=== PATIENT | male | born 1985 | race Caucasian/White ===

== ENCOUNTER 2019-02-25 00:07 | Emergency (ER) | payer SELFPAY ==
[~2019-02-25] VITALS: Ht 188 cm; Wt 127.0 kg
--- NOTE | 2019-02-25 00:07 | NUR ---
MICK DAWKINS. TAKEN TO BED 1
--- NOTE | 2019-02-25 00:07 | NUR ---
33/M BIB BLS, C/O 09/09 BL GROIN AND BLE PAIN, X2 DAYS; EXACERBATED BY WALKING "ALL DAY." BYSTANDER CALLED 911, PT IS HOMELESS, WAS FOUND IN THE STREETS IN [place]. SEVERE GROIN RASH WITH SURROUNDING REDNESS NOTED ON BL GROIN, PT DESCRIBED FROM GROIN CHAFFING. AOX4, GCS 15, AMBULATORY, RR EVEN AND UNLABORED. HX HTN, BIPOLAR, SCHIZOPHRENIA, RX NONCOMPLIANT
[2019-02-25 00:15] VITALS: BP 136/75
[2019-02-25] MEDS ORDERED: BACITRACIN OINT 500 UNITS/GM PKT TP ONE (01:10)
--- NOTE | 2019-02-25 01:22 | NUR ---
PT LEGS COVERED WITH BACITRACIN AND WRAPPED WITH ROLLER GAUZE. +CSM
--- NOTE | 2019-02-25 01:23 | NUR ---
PT IS HOMELESS, PT STATED THAT HE WILL GO BACK TO THE STREETS. PT PROVIDED WITH HOMELESS RESOURCE PACKET, PROVIDED WITH SANDWICH AND BUS PASS. PT WITH APPROPRIATE CLOTHING FOR WEATHER.
[2019-02-25 01:24] VITALS: BP 112/66
--- NOTE | 2019-02-25 01:24 | NUR ---
Patient discharged with v/s stable. Written and verbal after care instructions given and explained. Patient verbalized understanding. Ambulatory with steady gait. All questions addressed prior to discharge. Advised to follow up with PMD.
== END 2019-02-25 01:24 | disposition home or self-care (01) ==
LOC: MED 00:07
DX: L30.4 Erythema intertrigo (principal); F31.9 Bipolar disorder, unspecified; F90.9 Attention-deficit hyperactivity disorder, unspecified type; I10 Essential (primary) hypertension; F20.9 Schizophrenia, unspecified; Z59.0 Homelessness
CPT/HCPCS: 99283